=== PATIENT | male | born 1980 | race Caucasian/White ===

== ENCOUNTER → 2018-12-31 12:52 | Outpatient (CLI) | payer OTHER, SELFPAY ==
--- NOTE | 2018-12-31 12:56 | MR_ITS ---
MR thoracic spine wo con HISTORY: ITS.REASON: LUMBAR CONTUSION ORDERING PHYSICIAN: SHALINI Jacome PATIENT AGE: 38 years Comparison: None TECHNIQUE: Standard multiplanar multiecho sequences are performed without contrast. 3-D MIP and myelographic images are also rendered and reviewed FINDINGS: Alignment and vertebral body heights are normal. 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 There is type I subchondral degenerative change anteriorly at T7-8 level. There are multiple levels of mild to moderate loss of disc space height in the midthoracic spine at T6-T9 levels. T6-7 level shows a very small central protrusion with minimal ventral cord deformity. T8-9 shows a small right paracentral disc protrusion with very mild ventral cord deformity. There is also possible very subtle small disc protrusion at T2-3 level however there are no axial images through this area and there is no definite cord deformity. Visualized foraminal areas and paraspinal structures are unremarkable. IMPRESSION: Generalized degenerative disc disease at T6-T9 levels. Small ventral extradural protrusions with very mild ventral cord deformity at C6-7 and somewhat more evident along the right-sided T8-9. Possible small protrusion without mass effect at T2-3 however there are no axial images through this area.
--- NOTE | 2018-12-31 12:56 | MR_ITS ---
MR lumbar spine wo con HISTORY: ITS.REASON: LUMBAR CONTUSION ORDERING PHYSICIAN: SHALINI Jacome PATIENT AGE: 38 years Comparison: None TECHNIQUE: Standard multiplanar multiecho sequences are performed without contrast. 3-D MIP and myelographic images are also rendered and reviewed FINDINGS: Alignment and vertebral body heights are normal. The signal from the osseous marrow elements are normal except there is focal chronic type II subchondral degenerative change along the anterior inferior L1-2 level. This is associated with anterior spur. Disc space heights are otherwise normal. All disc levels in the lumbar area showed no disc herniation, bulge or central canal stenosis. Nerve root and foraminal areas are surrounded by epidural fat into normal. Conus and cauda equina nerve roots appear normal. There is a round right adrenal gland nodule of intermediate signal measuring 11 mm. IMPRESSION: No disc herniation, bulge or central stenosis. Chronic osseous marrow signal changes with anterior spurring at L1-2. 11 mm right adrenal gland nodule is nonspecific and suggest either follow-up CT abdomen in 6 months to establish stability or MRI of the adrenal gland with and without contrast.
== END ==
PROVIDERS: PCP Internal Medicine Adolescent Medicine; Visit Provider Preventive Medicine Occupational Medicine
DX: S30.0XXA Contusion of lower back and pelvis, initial encounter (principal); M54.5 Low back pain; W24.0XXA Contact with lifting devices, not elsewhere classified, initial encounter; W22.8XXA Striking against or struck by other objects, initial encounter
CPT/HCPCS: 72146; 72148; 76376

== ENCOUNTER → 2019-01-31 14:30 | Outpatient (CLI) | payer OTHER, SELFPAY ==
--- NOTE | 2019-01-31 14:33 | MR_ITS ---
MR knee LT wo con HISTORY: ITS.REASON: CONTUSION OF LEFT KNEE ORDERING PHYSICIAN: SHALINI Jacome PATIENT AGE: 38 years Comparison: None TECHNIQUE: Standard multiplanar multiecho sequences are performed without contrast. FINDINGS: There is evidence of repair for anterior cruciate ligament tear. In the ACL area there is a fairly thin focus of intermediate signal which could be from the graft. This is probably intact although appears to be fairly thin. The PCL is normal. The MCL is intact although there is a small amount of fluid medial to the MCL. Lateral capsule complex appears normal. There are slight increased T2 signal in the lateral femoral condyle marrow. The remainder of the osseous marrow elements are abnormal signal. Articular cartilage areas appear to be intact. The retinacular areas are intact. The quadriceps and patellar tendons are intact. Coronal image #19 shows a small truncated defect at the inner tip of the body of the lateral meniscus. There is generalized severe attenuation of the entire medial meniscus and there is moderate narrowing of the medial compartment. There is a small fluid collection between the gastrocnemius and semimembranosus tendons. Impression: Evidence of ACL repair. Correlate with the type of graft which appears to be fairly thin on this exam. Chronic severe circumferential tear of the medial meniscus. Small truncated radial tear of the body of the lateral meniscus. Small joint effusion. Small popliteal cyst. Subtle bone bruise of the lateral femoral condyle.
== END ==
PROVIDERS: PCP Internal Medicine Adolescent Medicine; Visit Provider Preventive Medicine Occupational Medicine
DX: S80.02XA Contusion of left knee, initial encounter (principal)
CPT/HCPCS: 73721

== ENCOUNTER → 2019-02-17 13:57 | Outpatient (POV) | payer OTHER, SELFPAY ==
[2019-02-17 14:02] VITALS: BP 158/99; PULSE 78; RESP 18; O2SAT 98; BMI 39.1
--- NOTE | 2019-02-17 15:48 | HMH.PMCON ---
Assessment and Plan (1) Thoracic radiculopathy due to degenerative joint disease of spine Current visit: Yes Status: Chronic Category: Medical Code(s): M47.24 - Other spondylosis with radiculopathy, thoracic region - Assessment and plan all Dx Assessment and Plan for all problems:: We will schedule T4-T5 epidural steroid injection for the patient. I believe it would be beneficial given his symptomology. We will also start him on gabapentin 100 mg at nighttime to see if this is beneficial. Patient's been instructed to call the office if he has any issues prior to his next appointment. Patient's been instructed on side effects of medication. He will follow-up with the patient after his injection reassess his symptoms at that time. He is not on any anticoagulation therapy. Dr. Worrell has reviewed this note and agrees with this plan of care. This note was dictated using voice recognition software and may contain errors or omissions HPI - Data of Consult Consult date: 02/17/19 Requesting Physician: Ada Schneider APRN Primary Care Provider: Tommy Martin MD - Consult Narrative Reason for consult: Back pain History of present illness: Mr. Peterson is a 38 year old male who presents today for consultation secondary to a work-related injury. Patient was standing and was hit by a forklift. Since then he has had pain in the area around the bottom of his shoulder blades. He states it radiates into the intercostal space surrounding this area at times. He rates it a 5 out of 10 states is constant, burning in nature. Patient has tried some anti-inflammatories however it has not been beneficial he is also tried some muscle relaxers which also have not been beneficial. Patient is interested interventional means of treating his pain. Patient is tried physical therapy with no relief. CC: Ada Schneider APRN [facility] History I have reviewed the patient's past medical history: Yes *Have you ever received a pneumonia vaccine?: Yes *Have you received a flu vaccine this season?: Yes Other Medical History: Reports: Arthritis Laterality Cases: Bilateral: Tonsillectomy Amputation: No Fractures: No - *Social History Smoking Status: Never smoker Alcohol Intake: current Alcohol Intake Frequency:: holidays/special occasions only *Occupational Status:: employed, other Housing: house Household Members: spouse *Travel in the last 8 weeks: None Family Hx:: Unable to obtain Review of Systems - Review of Systems ROS General: no recent weight change, no fever, no sleep disturbances Respiratory: no cough, no shortness of air, no recurring pulmonary infections Cardiovascular/Peripheral Vascular: No chest pain, No palpitations, no edema, no shortness of breath. Gastrointestinal: no incontinence, normal bowel movements reported Genitourinary: no incontinence Musculoskeletal: Back pain Psychiatric: normal mood/ affect Neurological: [denies weakness in extremities], [denies balance issues] Meds Home Medications Medication Instructions Recorded Confirmed Type prednisone 20 mg tablet 20 mg PO BID #10 tab 03/27/18 Rx Allergies Allergy/AdvReac Type Severity Reaction Status Date / Time From [facility] Allergy Unknown RASH? Uncoded 06/26/17 14:35 Objective Vital signs: Pulse Resp BP Pulse Ox 78 18 158/99 H 98 02/17/19 14:02 02/17/19 14:02 02/17/19 14:02 02/17/19 14:02 Narrative: Physical Exam General: Alert and oriented x3, no acute distress, pleasant and cooperative, [on room air] Lungs: Resps E/U, Symmetrical chest expansion, Eyes: PERRL Musculoskeletal: Flexion and extension of thoracic spine somewhat guarded secondary to pain, deep tendon reflexes normal, strength in upper and lower extremities [5/5], normal gait noted Neurological: speech clear, creative resource manager equal, no gross sensory deficits Opioid Risk Tool - Opioid Risk Tool-Male Family hx alcohol abuse: N Family hx
--- NOTE | 2019-02-17 15:52 | P.CONS_ITS ---
Assessment and Plan (1) Thoracic radiculopathy due to degenerative joint disease of spine Current visit: Yes Status: Chronic Category: Medical Code(s): M47.24 - Other spondylosis with radiculopathy, thoracic region - Assessment and plan all Dx Assessment and Plan for all problems:: We will schedule T4-T5 epidural steroid injection for the patient. I believe it would be beneficial given his symptomology. We will also start him on gabapentin 100 mg at nighttime to see if this is beneficial. Patient's been instructed to call the office if he has any issues prior to his next appointment. Patient's been instructed on side effects of medication. He will follow-up with the patient after his injection reassess his symptoms at that time. He is not on any anticoagulation therapy. Dr. Worrell has reviewed this note and agrees with this plan of care. This note was dictated using voice recognition software and may contain errors or omissions HPI - Data of Consult Consult date: 02/17/19 Requesting Physician: Ada Schneider APRN Primary Care Provider: Tommy Martin MD - Consult Narrative Reason for consult: Back pain History of present illness: Mr. Peterson is a 38 year old male who presents today for consultation secondary to a work-related injury. Patient was standing and was hit by a forklift. Since then he has had pain in the area around the bottom of his shoulder blades. He states it radiates into the intercostal space surrounding this area at times. He rates it a 5 out of 10 states is constant, burning in nature. Patient has tried some anti-inflammatories however it has not been beneficial he is also tried some muscle relaxers which also have not been beneficial. Patient is interested interventional means of treating his pain. Patient is tried physical therapy with no relief. CC: Ada Schneider APRN [facility] History I have reviewed the patient's past medical history: Yes *Have you ever received a pneumonia vaccine?: Yes *Have you received a flu vaccine this season?: Yes Other Medical History: Reports: Arthritis Laterality Cases: Bilateral: Tonsillectomy Amputation: No Fractures: No - *Social History Smoking Status: Never smoker Alcohol Intake: current Alcohol Intake Frequency:: holidays/special occasions only *Occupational Status:: employed, other Housing: house Household Members: spouse *Travel in the last 8 weeks: None Family Hx:: Unable to obtain Review of Systems - Review of Systems ROS General: no recent weight change, no fever, no sleep disturbances Respiratory: no cough, no shortness of air, no recurring pulmonary infections Cardiovascular/Peripheral Vascular: No chest pain, No palpitations, no edema, no shortness of breath. Gastrointestinal: no incontinence, normal bowel movements reported Genitourinary: no incontinence Musculoskeletal: Back pain Psychiatric: normal mood/ affect Neurological: [denies weakness in extremities], [denies balance issues] Meds Home Medications Medication Instructions Recorded Confirmed Type prednisone 20 mg tablet 20 mg PO BID #10 tab 03/27/18 Rx Allergies Allergy/AdvReac Type Severity Reaction Status Date / Time From [facility] Allergy Unknown RASH? Uncoded 06/26/17 14:35 Objective Vital signs: Pulse Resp BP Pulse Ox 78 18 158/99 H 98
== END ==
PROVIDERS: PCP Internal Medicine Adolescent Medicine; Visit Provider Clinical Nurse Specialist Family Health
DX: M47.24 Other spondylosis with radiculopathy, thoracic region (principal)
CPT/HCPCS: 99202

== ENCOUNTER → 2019-02-20 16:21 | Outpatient (CLI) | payer OTHER, SELFPAY ==
--- NOTE | 2019-02-20 16:24 | XR_ITS ---
PROCEDURE: XR KNEE LT 4V CLINICAL INDICATION: knee pain FINDINGS: Status post ACL repair with screws present within the ACL tunnels. There is good alignment. No acute fracture or dislocation. There are mild osteoarthritic changes of the medial compartment and patellofemoral joint. IMPRESSION: Status post ACL repair with osteo arthritic change, no acute finding Dictated by: Houston Wu MD 02/20/2019 16:47 Signed by: <Electronically signed by Houston Wu MD in [place]> 02/20/2019 16:47
== END ==
PROVIDERS: PCP Internal Medicine Adolescent Medicine; Visit Provider Orthopaedic Surgery
DX: M25.562 Pain in left knee (principal)
CPT/HCPCS: 73564

== ENCOUNTER → 2019-04-21 14:28 | Outpatient (POV) | payer OTHER, SELFPAY ==
[2019-04-21 14:47] VITALS: BP 171/98; PULSE 89; RESP 18; O2SAT 98; BMI 41.0
--- NOTE | 2019-04-22 08:21 | P.CONS_ITS ---
[facility] Pain Management SOAP Note Subjective:: Patient is a pleasant 38-year-old white male who presents today for follow-up after thoracic epidural. Patient has radiation into the intercostal space. Patient rates his pain a 4 out of 10 today he states that he got no relief from his injection. On exam today there is palpable trigger points along with thoracic paraspinous. Patient also was started on gabapentin however it made him quite sleepy we will discontinue this. ROS General: no recent weight change, no fever, no sleep disturbances Respiratory: no cough, no shortness of air, no recurring pulmonary infections Cardiovascular/Peripheral Vascular: No chest pain, No palpitations, no edema, no shortness of breath. Gastrointestinal: no incontinence, normal bowel movements reported Genitourinary: no incontinence Musculoskeletal: Mid back pain Psychiatric: normal mood/ affect, [denies depression], [denies anxiety] Neurological: [denies weakness in extremities], [denies balance issues] Objective:: Physical Exam General: Alert and oriented x3, no acute distress, pleasant and cooperative, [on room air] Lungs: Resps E/U, Symmetrical chest expansion, [CTA bilateral] Eyes: PERRL Musculoskeletal: Flexion and extension of thoracic spine somewhat guarded secondary to pain, deep tendon reflexes normal, strength in upper and lower extremities [5/5], normal gait noted, palpable trigger points bilateral thoracic paraspinous Neurological: speech clear, pluck trimmer equal, no gross sensory deficits Assessment:: Degenerative disc disease thoracic spine with thoracic radiculopathy and myofascial pain syndrome Plan:: We will schedule trigger point injections of the bilateral thoracic paraspinous muscles. We will see if this is beneficial for him. We will discontinue the gabapentin since he was getting no benefit from it and was having side effects. Dr. Worrell has reviewed this note and agrees with this plan of care. This note was dictated using voice recognition software and may contain errors or omissions [facility] History I have reviewed the patient's past medical history: Yes Medical History: Reports:: Hypertension, Seizures Denies:: Cancer, Diabetes Mellitus Type 1, Diabetes Mellitus Type 2, MRSA *Have you ever received a pneumonia vaccine?: Yes *Have you received a flu vaccine this season?: Yes Other Medical History: Reports: Arthritis Laterality Cases: Other Surgeries: Yes: Other Amputation: No Fractures: No - *Social History Smoking Status: Former smoker Tobacco Type: smokeless tobacco # Packs/Day (cigarettes): 0 Alcohol Intake: current Alcohol Intake Frequency:: holidays/special occasions only *Occupational Status:: other Housing: house Household Members: spouse *Travel in the last 8 weeks: None Family Hx:: Hypertension
== END ==
PROVIDERS: PCP Internal Medicine Adolescent Medicine; Visit Provider Clinical Nurse Specialist Family Health
DX: M51.14 Intervertebral disc disorders with radiculopathy, thoracic region (principal); M79.18 Myalgia, other site
CPT/HCPCS: 99212

== ENCOUNTER → 2019-05-26 13:43 | Outpatient (POV) | payer OTHER, SELFPAY ==
[2019-05-26 13:52] VITALS: BP 171/99; PULSE 73; RESP 18; O2SAT 94; BMI 41.3
--- NOTE | 2019-05-26 14:05 | HMH.PAINSOAP ---
[facility] Pain Management SOAP Note Subjective:: Patient is a very pleasant 38-year-old white male who presents today for follow-up. Patient had a thoracic epidural and also had trigger point injections. Patient has not gotten any long-term relief from this. Patient was recently seen by an [facility]. Patient states that Dr. Schwarz stated that he had no idea why he was going to pain management and that he thought our explanations for pain were bullshit . I asked the patient if he had a explanation for his pain symptomology and he stated that he had no explanation but thought that he should go see a neurosurgeon. Patient states that his pain is about a 5 out of 10 mostly in his thoracic spine. Patient does have degenerative changes in this area. He has a recent MRI. We will send him to neurosurgery I do believe that this will be the next step due to the ineffectiveness of the epidural injection and trigger point injections. ROS General: no recent weight change, no fever, no sleep disturbances Respiratory: no cough, no shortness of air, no recurring pulmonary infections Cardiovascular/Peripheral Vascular: No chest pain, No palpitations, no edema, no shortness of breath. Gastrointestinal: no new onset incontinence, normal bowel movements reported Genitourinary: no new onset incontinence Musculoskeletal: Thoracic back pain Psychiatric: normal mood/ affect Neurological: [denies new onset weakness in extremities], [denies new onset balance issues] Objective:: Physical Exam General: Alert and oriented x3, no acute distress, pleasant and cooperative, [on room air] Lungs: Resps E/U, Symmetrical chest expansion, Eyes: PERRL Musculoskeletal: Flexion and extension of thoracic spine somewhat guarded secondary to pain, deep tendon reflexes normal, strength in upper and lower extremities [5/5], slightly antalgic gait noted Neurological: speech clear, atlassian administrator equal, no gross sensory deficits Assessment:: Thoracic pain, degenerative disc disease thoracic spine, myofascial pain syndrome Plan:: We will set the patient up with a neurosurgeon for consultation. Patient's been instructed to call our office if he has any issues prior to her this appointment. Dr. Worrell has reviewed this note and agrees with this plan of care. This note was dictated using voice recognition software and may contain errors or omissions [facility] History I have reviewed the patient's past medical history: Yes Medical History: Reports:: Hypertension, Seizures Denies:: Cancer, Diabetes Mellitus Type 1, Diabetes Mellitus Type 2, MRSA *Have you ever received a pneumonia vaccine?: No *Have you received a flu vaccine this season?: No Other Medical History: Reports: Arthritis Laterality Cases: Left: Arthroscopy Knee, Bilateral: Tonsillectomy Other Surgeries: Yes: Other Amputation: No Fractures: No - *Social History Smoking Status: Never smoker Tobacco Type: smokeless tobacco # Packs/Day (cigarettes): 0 Alcohol Intake: current Alcohol Intake Frequency:: holidays/special occasions only *Occupational Status:: employed Housing: house Household Members: spouse *Travel in the last 8 weeks: None Family Hx:: Hypertension
--- NOTE | 2019-05-26 14:08 | P.CONS_ITS ---
[facility] Pain Management SOAP Note Subjective:: Patient is a very pleasant 38-year-old white male who presents today for follow- up. Patient had a thoracic epidural and also had trigger point injections. Patient has not gotten any long-term relief from this. Patient was recently seen by an [facility]. Patient states that Dr. Schwarz stated that he had no idea why he was going to pain management and that he thought our explanations for pain were bullshit . I asked the patient if he had a explanation for his pain symptomology and he stated that he had no explanation but thought that he should go see a neurosurgeon. Patient states that his pain is about a 5 out of 10 mostly in his thoracic spine. Patient does have degenerative changes in this area. He has a recent MRI. We will send him to neurosurgery I do believe that this will be the next step due to the ineffectiveness of the epidural injection and trigger point injections. ROS General: no recent weight change, no fever, no sleep disturbances Respiratory: no cough, no shortness of air, no recurring pulmonary infections Cardiovascular/Peripheral Vascular: No chest pain, No palpitations, no edema, no shortness of breath. Gastrointestinal: no new onset incontinence, normal bowel movements reported Genitourinary: no new onset incontinence Musculoskeletal: Thoracic back pain Psychiatric: normal mood/ affect Neurological: [denies new onset weakness in extremities], [denies new onset balance issues] Objective:: Physical Exam General: Alert and oriented x3, no acute distress, pleasant and cooperative, [on room air] Lungs: Resps E/U, Symmetrical chest expansion, Eyes: PERRL Musculoskeletal: Flexion and extension of thoracic spine somewhat guarded secondary to pain, deep tendon reflexes normal, strength in upper and lower extremities [5/5], slightly antalgic gait noted Neurological: speech clear, rejector equal, no gross sensory deficits Assessment:: Thoracic pain, degenerative disc disease thoracic spine, myofascial pain syndrome Plan:: We will set the patient up with a neurosurgeon for consultation. Patient's been instructed to call our office if he has any issues prior to her this appointment. Dr. Worrell has reviewed this note and agrees with this plan of care. This note was dictated using voice recognition software and may contain errors or omissions [facility] History I have reviewed the patient's past medical history: Yes Medical History: Reports:: Hypertension, Seizures Denies:: Cancer, Diabetes Mellitus Type 1, Diabetes Mellitus Type 2, MRSA *Have you ever received a pneumonia vaccine?: No *Have you received a flu vaccine this season?: No Other Medical History: Reports: Arthritis Laterality Cases: Left: Arthroscopy Knee, Bilateral: Tonsillectomy Other Surgeries: Yes: Other Amputation: No Fractures: No - *Social History Smoking Status: Never smoker Tobacco Type: smokeless tobacco # Packs/Day (cigarettes): 0 Alcohol Intake: current Alcohol Intake Frequency:: holidays/special occasions only *Occupational Status:: employed Housing: house Household Members: spouse *Travel in the last 8 weeks: None Family Hx:: Hypertension
== END ==
PROVIDERS: PCP Internal Medicine Adolescent Medicine; Visit Provider Clinical Nurse Specialist Family Health
DX: M54.6 Pain in thoracic spine (principal); M79.18 Myalgia, other site
CPT/HCPCS: 99212

== ENCOUNTER → 2019-08-26 13:51 | Outpatient (CLI) | payer OTHER, SELFPAY ==
[2019-08-26 14:28] LABS: Chloride 100 mmol/L (98-107); Sodium 139 mmol/L (136-145)
[2019-08-26 14:30] LABS: Alanine Aminotransferase 95 U/L (12-78); Alkaline Phosphatase 124 U/L (38-126); Aspartate Amino Transferase 43 U/L (17-59); Bilirubin,Total 0.3 mg/dl (0.2-1.3); Blood Urea Nitrogen 18 mg/dl (9-20); Estimated Glomerular Filt Rate 107 ml/min (>60); GFR (African American) 130 ML/MIN (>60)
[2019-08-26 14:31] LABS: Albumin Level 4.4 g/dl (3.5-5.0); Albumin/Globulin Ratio 1.4 (1.1-1.8); Calcium 9.6 mg/dl (8.4-10.2); Carbon Dioxide 27 mmol/L (22.0-30.0); Chol/HDL Ratio 5.5 (1-3.5); Cholesterol 252 mg/dl (140-200); Globulin 3.1 g/dL (1.3-3.2); Glucose 94 mg/dl (74-100); HDL Cholesterol 46 mg/dl (40-60); Total Protein,Serum 7.5 g/dl (6.3-8.2); Triglycerides 345 mg/dl (30-150); VLDL Cholesterol 69 mg/dL (0-40)
[2019-08-26 14:43] LABS: Basophils # 0.1 K/mm3 (0-0.2); Basophils % 0.9 % (0.1-2.0); Direct LDL Cholesterol 158.04 mg/dL (100-129); Eosinophils # 0.2 K/mm3 (0.0-0.4); Eosinophils % 1.5 % (0.1-12.0); Hematocrit 46.5 % (42.0-52.0); Hemoglobin 15.8 g/dL (14.1-18.0); Lymphocytes # 3.6 K/mm3 (0.7-4.5); Lymphocytes % 30.5 % (10-50); Mean Corpuscular Hemoglobin 29.2 pg (27.0-31.2); Mean Corpuscular Volume 86.1 fl (80-94); Mean Platelet Volume 8.4 fl (7.4-10.4); Monocytes # 7.5 K/mm3 (0.1-1.0); Monocytes % 64.4 % (1.7-9.3); Neutrophils # 0.3 K/mm3 (1.8-7.8); Platelet Count 280 K/mm3 (142-424); Red Cell Distribution Width 13.1 % (11.5-17.5); White Blood Count 11.7 K/mm3 (4.8-10.8)
[2019-08-26 14:48] LABS: Free T4 (Free Thyroxine) 1.19 ng/dl (0.78-2.19)
[2019-08-26 15:02] LABS: Thyroid Stimulating Hormone 1.34 uIU/mL (0.465-4.68)
[2019-08-26 15:26] LABS: Neutrophils % 2.8 % (37.0-80.0)
[2019-08-26 15:31] LABS: Eosinophils % 3 % (0-3); Lymphocytes % 29 % (10-50); MANUAL DIFFERENTIAL MANUAL DIFFERENTIAL (MANUAL DIFF); Monocytes % 14 % (2-9); Neutrophils % 54 % (42-76); Platelet Estimate Normal; Total Cells Counted 100
[2019-08-26 15:32] LABS: Toxic Vacuolation 1+
[2019-08-26 15:34] LABS: RBC Morphology Normal; Toxic Granulation 1+
[2019-08-27 07:17] LABS: Hep A Ab, IgM Negative (Negative); Hepatitis B Core Antibody IgM Negative (Negative); Hepatitis B Surface Antigen Negative (Negative)
[2019-08-28 16:57] LABS: Peripheral Smear Review Scanned Result
[2019-08-29 09:35] LABS: Hepatitis C Antibody <0.1 s/co ratio (0.0-0.9); Vitamin D 25 Hydroxy 12.9 ng/mL (30.0-100.0)
[2019-08-29 10:33] LABS: RA Latex Turbid. 13.2 IU/mL (0.0-13.9)
== END ==
PROVIDERS: Physician Assistant; Visit Provider Emergency Medicine
DX: E66.9 Obesity, unspecified (principal); M47.24 Other spondylosis with radiculopathy, thoracic region; E55.9 Vitamin D deficiency, unspecified; I10 Essential (primary) hypertension; Z68.41 Body mass index [BMI] 40.0-44.9, adult
CPT/HCPCS: 80053; 80061; 80074; 82652; 84439; 84443; 85007; 85025; 86431

== ENCOUNTER → 2019-09-29 09:56 | Outpatient (POV) | payer OTHER, SELFPAY ==
[2019-09-29 10:27] VITALS: BP 162/99; PULSE 72; RESP 18; O2SAT 98; BMI 44.0
--- NOTE | 2019-09-29 12:45 | P.CONS_ITS ---
[facility] Pain Management SOAP Note Subjective:: Patient is a 38-year-old white male who presents today for follow-up. He had a thoracic epidural and trigger point injections he had not gotten all any long- term relief from this. He was seen by an [facility] which stated that the explanation of myofascial pain was bullshit . He was sent to neurosurgeon who said that there was no surgical intervention necessary and sent him back to physical therapy which he completed again. He rates his pain a 6 out of 10 is constant and is in his thoracic paraspinous muscles. Patient and I discussed trigger points coupled with massage therapy. ROS General: no recent weight change, no fever, no sleep disturbances Respiratory: no cough, no shortness of air, no recurring pulmonary infections Cardiovascular/Peripheral Vascular: No chest pain, No palpitations, no edema, no shortness of breath. Gastrointestinal: no new onset incontinence, normal bowel movements reported Genitourinary: no new onset incontinence Musculoskeletal: Thoracic back pain Psychiatric: normal mood/ affect, Neurological: [denies new onset weakness in extremities], [denies new onset balance issues] Objective:: Physical Exam General: Alert and oriented x3, no acute distress, pleasant and cooperative, [on room air] Lungs: Resps E/U, Symmetrical chest expansion, Eyes: PERRL Musculoskeletal: Flexion and extension of thoracic spine somewhat guarded secondary to pain, deep tendon reflexes normal, strength in upper and lower extremities [5/5], slightly antalgic gait noted Neurological: speech clear, market research specialist equal, no gross sensory deficits Assessment:: Degenerative disc disease thoracic spine with myofascial pain Plan:: At this time we will plan on doing trigger point injections of the thoracic paraspinous and follow that immediately after by massage therapist. Dr. Worrell has reviewed this note and agrees with this plan of care. This note was dictated using voice recognition software and may contain errors or omissions [facility] History I have reviewed the patient's past medical history: Yes Medical History: Reports:: Hypertension, Seizures Denies:: Cancer, Diabetes Mellitus Type 1, Diabetes Mellitus Type 2, MRSA *Have you ever received a pneumonia vaccine?: Yes *Have you received a flu vaccine this season?: Yes Other Medical History: Reports: Arthritis Laterality Cases: Left: Arthroscopy Knee, Bilateral: Tonsillectomy Other Surgeries: Yes: Other Amputation: No Fractures: No - *Social History Smoking Status: Former smoker Tobacco Type: smokeless tobacco # Packs/Day (cigarettes): 0 Alcohol Intake: current Alcohol Intake Frequency:: holidays/special occasions only Substance Use Type: denies use *Occupational Status:: other Housing: house Household Members: spouse *Travel in the last 8 weeks: None Family Hx:: Hypertension
== END ==
PROVIDERS: PCP Internal Medicine Adolescent Medicine; Visit Provider Clinical Nurse Specialist Family Health
DX: M51.34 Other intervertebral disc degeneration, thoracic region (principal); M79.18 Myalgia, other site
CPT/HCPCS: 99212

== ENCOUNTER → 2021-06-08 10:05 | Outpatient (CLI) | payer BC, SELFPAY | PROVIDERS: PCP Internal Medicine Adolescent Medicine; Visit Provider Nurse Practitioner Family | DX: Z20.822 Contact with and (suspected) exposure to COVID-19 (principal) | CPT/HCPCS: C9803; U0003; U0005 ==

== ENCOUNTER → 2021-06-11 12:08 | Outpatient (CLI) | payer BC, SELFPAY | PROVIDERS: PCP Nurse Practitioner Family; Visit Provider Nurse Practitioner Family | DX: U07.1 COVID-19 (principal) | CPT/HCPCS: C9803; U0003; U0005 ==

== ENCOUNTER → 2022-03-25 09:28 | Outpatient (CLI) | payer BC, SELFPAY ==
[2022-03-25 10:49] LABS: Potassium 4.3 mmoL/L (3.5-5.1); Sodium 139 mmol/L (136-145)
[2022-03-25 10:51] LABS: Blood Urea Nitrogen 16 mg/dl (9-20); Estimated Glomerular Filt Rate 147 ml/min (>60); GFR (African American) 178 ML/MIN (>60)
[2022-03-25 10:52] LABS: Alanine Aminotransferase 32 U/L (12-78); Albumin Level 4.3 g/dl (3.5-5.0); Albumin/Globulin Ratio 1.6 (1.1-1.8); Alkaline Phosphatase 106 U/L (38-126); Aspartate Amino Transferase 29 U/L (17-59); Bilirubin,Total 0.2 mg/dl (0.2-1.3); Calcium 8.8 mg/dl (8.4-10.2); Carbon Dioxide 26 mmol/L (22.0-30.0); Cholesterol 195 mg/dl (140-200); Globulin 2.7 g/dL (1.3-3.2); Glucose 93 mg/dl (74-100); HDL Cholesterol 39 mg/dl (40-60); Triglycerides 92 mg/dl (30-150); VLDL Cholesterol 18 mg/dL (0-40)
[2022-03-25 11:03] LABS: Direct LDL Cholesterol 120.49 mg/dL (100-129)
[2022-03-25 13:54] LABS: Anion Gap 14.3 mEq/L (5-15); Chloride 103 mmol/L (98-107)
== END ==
PROVIDERS: PCP Internal Medicine Adolescent Medicine; Visit Provider Nurse Practitioner Family
DX: Z00.00 Encounter for general adult medical examination without abnormal findings (principal); I10 Essential (primary) hypertension
CPT/HCPCS: 36415; 80053; 80061

== ENCOUNTER 2022-06-24 11:11 | Emergency (ER) | payer BC, SELFPAY ==
[2022-06-24 12:05] VITALS: BP 142/82; PULSE 77; RESP 16; TEMP 36.7; O2SAT 97; BMI 40.1
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
[2022-06-24 13:06] VITALS: BP 142/82; PULSE 77; RESP 16; TEMP 36.7
== END 2022-06-24 13:06 | disposition home or self-care (01) ==
PROVIDERS: Emergency Provider Nurse Practitioner Family; PCP Internal Medicine Adolescent Medicine
DX: M54.41 Lumbago with sciatica, right side (principal)
CPT/HCPCS: 96372; 99212; G0463

== ENCOUNTER → 2022-06-28 12:36 | Outpatient (CLI) | payer BC, SELFPAY ==
--- NOTE | 2022-06-28 12:48 | XR_ITS ---
FINAL REPORT CLINICAL HISTORY: bunion, left foot pain FINDINGS: 3 views of the left foot were obtained. There is no acute fracture or dislocation. There is mild hallux valgus deformity. There are mild degenerative changes of the 1st MTP joint. There is a small plantar calcaneal spur. There are presumed chronic fractures of the proximal 2nd, 3rd, and 4th metatarsals. The soft tissues are unremarkable. IMPRESSION: Mild degenerative change of the 1st MTP joint with mild hallux valgus deformity. Reviewed, Interpreted and Dictated by Rocael Sterling III, MD Transcribed by Ministerio Jain Authenticated and . [facility]
== END ==
PROVIDERS: PCP Internal Medicine Adolescent Medicine; Visit Provider Podiatrist
DX: M21.612 Bunion of left foot (principal)
CPT/HCPCS: 73630